=== PATIENT | male | born 1990 | race Caucasian/White ===

== ENCOUNTER → 2020-05-11 | Outpatient (CLI) | payer OTHER | LOC: M LABSMTC 11:55 | PROVIDERS: ATTEND Family Medicine | DX: Z20.828 Contact with and (suspected) exposure to other viral communicable diseases (principal) | CPT/HCPCS: C9803; U0003 ==

== ENCOUNTER → 2020-06-14 | Outpatient (CLI) | payer OTHER ==
[~2020-06-14] MED LIST: METHACHOLINE KIT (J7674) INH ONE
--- NOTE | 2020-06-14 11:39 | PFTRPT ---
Height: 68.00 Inches Weight: 230.00 Lbs BSA: 2.17 Diagnosis: J45.991 DATE: 06/14/2020 METHACHOLINE CHALLENGE STUDY ORDERED BY: Dr. Pardo. QUALITY: Study of excellent technical quality. PROCEDURE: Under protocol, methacholine was administered. At a dose of 10 mg or 63.75 CDUs, a 23% decline in the FEV1 was noted. Data acquisition somewhat hampered by cough. PC is just within the diagnostic parameters at 6.89. Flow rates did return to baseline post bronchodilator administration. IMPRESSION: Positive methacholine challenge study. MTDD
== END ==
LOC: M CARPUL 06-09 07:31
PROVIDERS: ATTEND Internal Medicine
DX: J45.991 Cough variant asthma (principal)
CPT/HCPCS: 94070; J7674

== ENCOUNTER → 2022-06-21 | Outpatient (CLI) | payer OTHER ==
[~2022-06-21] MED LIST changes: -METHACHOLINE KIT (J7674) INH ONE; +MONT10TA97 PO; +QVAR80AE8 INH
== END ==
LOC: M LABSMTC 08:51
PROVIDERS: ATTEND Anesthesiology
DX: Z01.818 Encounter for other preprocedural examination (principal); Z11.52 Encounter for screening for COVID-19

== ENCOUNTER 2022-06-26 06:57 | Day surgery (SDC) | payer OTHER ==
[~2022-06-26] VITALS: Ht 175.3 cm; Wt 98.9 kg
[~2022-06-26 06:57] MED LIST changes: +LIDOCAINE 2% 100MG/5ML SDV (FOR ANES.) As Ordered ONE; +NS 1,000 ML IV ONE; +propofoL 200 MG/20 ML VIAL As Ordered ONE
[2022-06-26] MEDS ORDERED: fentaNYL 100 MCG/2 ML INJECTION As Ordered ONE (07:26)
[2022-06-26 08:55] VITALS: BP 121/90
== END 2022-06-26 09:12 | disposition home or self-care (01) ==
LOC: M OPP 06:57
PROVIDERS: ATTEND Internal Medicine Gastroenterology
DX: K22.2 Esophageal obstruction (principal); K20.0 Eosinophilic esophagitis; J45.909 Unspecified asthma, uncomplicated; Z79.51 Long term (current) use of inhaled steroids; Z88.0 Allergy status to penicillin; Z88.1 Allergy status to other antibiotic agents; Z88.2 Allergy status to sulfonamides; Z91.018 Allergy to other foods
CPT/HCPCS: 43239; 43249; 88305; J3010